=== PATIENT | male | born 1985 | race Caucasian/White ===

== ENCOUNTER → 2019-01-24 11:29 | Outpatient (CLI) | payer OTHER, SELFPAY ==
--- NOTE | 2019-01-24 | DI.MRI.S_ITS ---
PROCEDURE: MR SHOULDER RT WO CON INDICATIONS: RIGHT SHOULDER PAIN TECHNIQUE: Noncontrast oblique coronal T2 fast spin echo with fat saturation, oblique sagittal T1 spin echo and T2 fast spin echo with fat saturation, axial T1 spin echo and T2 fast spin echo with fat saturation through the shoulder. COMPARISON: None. FINDINGS: Image quality: Excellent. Rotator cuff: Tendinosis and low-grade articular and bursal surface partial-thickness tear involving distal supraspinatus is seen. Tendinosis and low-grade bursal surface partial-thickness tear involving distal infraspinatus is also noted. Distal subscapularis tendinosis and low-grade intrasubstance partial thickness tear is seen. No full-thickness rotator cuff tendon rupture. Sagittal images demonstrate no significant rotator cuff muscle atrophy. Bones and bursae: No bone marrow contusions or fractures. No acromioclavicular joint degeneration. The acromion demonstrates conventional anatomy, without an os acromiale. No pathologic subacromial-subdeltoid or subcoracoid bursal fluid is present. Capsule and soft tissues: In the absence of intra-articular contrast, the labrum and glenohumeral ligaments appear intact. The long head of the biceps tendon demonstrates normal location and morphology. The rotator interval appears normal, without fibrosis. The coracohumeral ligament is normal in thickness. IMPRESSION: 1. Tendinosis and low-grade articular and bursal surface partial-thickness tear involving distal supraspinatus at its insertion the humeral head extending to musculotendinous junction. Tendinosis and low-grade bursal surface partial-thickness tear involving distal infraspinatus. Tendinosis and low-grade intrasubstance partial-thickness tear involving distal subscapularis. No full-thickness rotator cuff tendon rupture. 2. No evidence of focal labral tear in the absence of intra-articular contrast. 3. No marrow edema. No fracture or dislocation. Dictated by: Jesus Alberto Rajan M.D. on 01/24/2019 at 12:53 Approved by: Jesus Alberto Rajan M.D. on 01/24/2019 at 13:05
== END ==
DX: M25.511 Pain in right shoulder (principal); M75.111 Incomplete rotator cuff tear or rupture of right shoulder, not specified as traumatic
CPT/HCPCS: 73221

== ENCOUNTER → 2024-03-19 10:58 | Outpatient (CLI) | payer OTHER, SELFPAY ==
--- NOTE | 2024-03-19 11:00 | DI.MRI.S_ITS ---
PROCEDURE: MR WRIST LT WO CON INDICATIONS: pain in left wrist TECHNIQUE: Noncontrast coronal proton density fast spin echo and T2 fast spin echo with fat saturation; coronal 3-D gradient echo, axial T1 spin echo and T2 fast spin echo with fat saturation, sagittal T1 spin echo through the wrist. COMPARISON: None. FINDINGS: Image quality: Excellent. Bones and cartilage: The carpal bones are normally aligned. No bone marrow contusions or fractures. No evidence for avascular necrosis. Overlying cartilage surfaces appear normal. Carpal ligaments: The scapholunate and lunotriquetral ligaments appear intact. In the absence of intra-articular contrast, the extrinsic carpal ligaments are not well identified. On sagittal images, the pisohamate ligament appears intact. Triangular fibrocartilage complex: There is focal T2 hyperintense signal within central portion of triangular fibrocartilage with small amount of fluid within the distal radioulnar joint space concerning for focal TFC perforation. The adjacent meniscal homolog appears normal in the absence of intra-articular contrast. The extensor carpi ulnaris tendon is normal in location and morphology. Tendons and soft tissues: The carpal tunnel structures appear normal, including the median nerve. The ulnar nerve appears normal within Guyon's canal. All six extensor tendon compartments demonstrate normal morphology, without pathologic tendon sheath fluid. No soft tissue ganglion cysts. IMPRESSION: 1. No marrow edema. No wrist fracture or dislocation. No evidence of avascular necrosis. 2. Finding is concerning for focal triangular fibrocartilage complex tear in its central portion. Small amount of fluid within distal radial ulnar joint. 3. Scapholunate and lunotriquetral ligaments are intact. 4. Low-grade intrasubstance partial-thickness tear involving extensor carpi ulnaris tendon at the level of ulnar styloid. Rest of the extensor and flexor tendons of wrist are intact. Dictated by: Jesus Alberto Rajan M.D. on 03/19/2024 at 13:08 Approved by: Jesus Alberto Rajan M.D. on 03/19/2024 at 13:12
== END ==
DX: S66.212A Strain of extensor muscle, fascia and tendon of left thumb at wrist and hand level, initial encounter (principal); M25.532 Pain in left wrist
CPT/HCPCS: 73221